=== PATIENT | male | born 1960 | race Caucasian/White ===

== ENCOUNTER 2018-06-08 12:47 | Emergency (ER) | payer BC ==
[2018-06-08] MEDS ORDERED: Aspirin 81 MG Tab.Chew PO ONE (12:57)
[2018-06-08] MEDS ORDERED: Nitroglycerin 0.4 MG Tab.SL SL ONE (12:58)
[2018-06-08] MEDS ORDERED: Nitroglycerin Lingual Spray 4.9 GM Canister TRLING STA (13:04)
[2018-06-08 13:36] LABS: CHLORIDE,CL 109 mEq/L (98-106); SODIUM,NA 138 mEq/L (136-145)
[2018-06-08 14:01] VITALS: BP 140/78
--- NOTE | 2018-06-08 14:22 | EDM.PDOC ---
ED HPI GENERAL MEDICAL PROBLEM - General Chief Complaint: Chest Pain Stated Complaint: CHEST PAIN Time Seen by Provider: 06/08/18 13:45 - History of Present Illness INITIAL COMMENTS - FREE TEXT/NARRATIVE: Thompson is a 57 year old male who presents to the ED with c/o chest pain radiating to his back. 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 He reports that around 1100 this morning he had sudden onset midsternal chest pain rated a 10/10. He reports it felt like a bomb went off in his chest. He reports he did continue to work and load branches for about an hour or so. He then returned home for lunch and told his how he was feeling and she recommended he come to ED. He reports that his pain is now a 3/10 and radiates more to his back. He reports the pain worsens with movement. He denies any shortness of breath, dizziness, N/V/D, abdominal pain, headache, cough, recent illness. He has not taken anything for the pain. Onset: Today, Sudden Onset Date: 06/08/18 Onset Time: 11:00 Duration: Improving Location: Reports: Chest, Back Quality: Reports: Ache, Pressure Severity: Mild Improves with: Reports: None Worsens with: Reports: Movement Context: Reports: Activity Associated Symptoms: Reports: Chest Pain. Denies: Confusion, Cough, cough w sputum, Diaphoresis, Fever/Chills, Headaches, Loss of Appetite, Malaise, Nausea/ Vomiting, Rash, Seizure, Shortness of Breath, Syncope, Weakness Mid-Sternal Chest Pain Score (Numeric/FACES): 3 - Related Data Allergies Allergy/AdvReac Type Severity Reaction Status Date / Time No Known Allergies Allergy Verified 01/04/15 10:21 Home Meds: Home Meds Excedrin 2 tab PO DAILY PRN 06/08/18 [History] Past Medical History - Past Surgical History GI Surgical History: Reports: Colonoscopy Social & Family History - Tobacco Use Smoking Status *Q: Never Smoker - Recreational Drug Use Recreational Drug Use: No ED ROS GENERAL - Review of Systems Review Of Systems: ROS reveals no pertinent complaints other than HPI. ED EXAM, GENERAL - Physical Exam Exam: See Below Exam Limited By: No Limitations General Appearance: Alert, WD/WN, No Apparent Distress Eye Exam: Bilateral Eye: EOMI, Normal Fundi, Normal Inspection, PERRL Head: Atraumatic, Normocephalic Neck: Normal Inspection, Supple, Non-Tender, Full Range of Motion Respiratory/Chest: No Respiratory Distress, Lungs Clear, Normal Breath Sounds, No Accessory Muscle Use, Chest Non-Tender Cardiovascular: Normal Peripheral Pulses, Regular Rate, Rhythm, No Edema, No Gallop, No JVD, No Murmur, No Rub GI/Abdominal: Normal Bowel Sounds, Soft, Non-Tender, No Organomegaly, No Distention, No Abnormal Bruit, No Mass Back Exam: Normal Inspection, Full Range of Motion. No: CVA Tenderness (L), CVA Tenderness (R) Extremities: Normal Inspection, Normal Range of Motion, Non-Tender, Normal Capillary Refill, No Pedal Edema Neurological: Alert, Oriented, CN II-XII Intact, Normal Cognition, Normal Gait, Normal Reflexes, No Motor/Sensory Deficits Psychiatric: Normal Affect, Normal Mood Skin Exam: Warm, Dry, Intact, Normal Color, No Rash Course - Vital Signs Last Recorded V/S: Last Vital Signs Temp 98.9 F 06/08/18 12:48 Pulse 66 06/08/18 12:48 Resp 20 06/08/18 12:48 BP 140/78 06/08/18 14:00 Pulse Ox 96 06/08/18 12:48 - Orders/Labs/Meds Orders: Active Orders 24 hr Category Date Time Status Chest 2V [CR] Stat Exams 06/08/18 12:53 Taken Labs: Laboratory Tests 06/08/18 06/08/18 06/08/18 Range/Units 13:10 13:10 13:10 WBC 4.2 L (5.0-10.0) 10^3/uL RBC 4.09 L (4.50-6.00) 10^6/uL Hgb 13.8 L (14.0-18.0) g/dL Hct 38.9 L (40.0-54.0) % MCV 95.1 H (82.0-94.0) fL MCH 33.7 H (27.0-32.0) pg MCHC 35.5 (33.0-38.0) g/dL RDW Coeff of Dayanara 12.2 (11.0-15.0) % Plt Count 158 (150-400) 10^3/uL Neut % (Auto) 58.5 (35-85) % Lymph % (Auto) 22.9 (10-55) % [place] % (Auto) 14.9 (0-16) % Eos % (Auto) 3.5 (0-5) % Baso % (Auto) 0.2 (0-3) % Neut # (Auto) 2.48 (1.80-7.00) 10^3/uL Lymph # (Auto) 0.97 L (1.00-4.80) 10^3/uL [place] # (Auto) 0.63 (0.00-0.80) 10^3/uL Eos # (Auto) 0.15 (0.00-0.45) 10^3/uL Baso # (Auto) 0.01 10^3/uL PT 9.8 (9.7-12.3) SEC INR 0.94 (0.92-1.18) APTT 25.3 (23.2-32.3) SEC D-Dimer, Quantitative (0.00-0.50) Sodium 138 (136-145) mEq/L Potassium 4.2 (3.5-5.0) mEq/L Chloride 109 H (98-106) mEq/L Carbon Dioxide 21 (21-32) mmol/L BUN 19 H (7-18) mg/dL Creatinine 1.0 (0.7-1.3) mg/dL Est Cr Clr Drug Dosing 93.62 mL/min Estimated GFR (MDRD) > 60 (>=60) mL/min Glucose 104 H (75-99) mg/dL Calcium 8.6 (8.4-10.1) mg/dL Lactate Dehydrogenase 167 (100-190) U/L Creatine Kinase 138 (35-232) U/L Troponin I < 0.017 (0.00-0.06) ng/mL 06/08/18 Range/Units 13:52 WBC (5.0-10.0) 10^3/uL RBC (4.50-6.00) 10^6/uL Hgb (14.0-18.0) g/dL Hct (40.0-54.0) % MCV (82.0-94.0) fL MCH (27.0-32.0) pg MCHC (33.0-38.0) g/dL RDW Coeff of Dayanara (11.0-15.0) % Plt Count (150-400) 10^3/uL Neut % (Auto) (35-85) % Lymph % (Auto) (10-55) % [place] % (Auto) (0-16) % Eos % (Auto) (0-5) % Baso % (Auto) (0-3) % Neut # (Auto) (1.80-7.00) 10^3/uL Lymph # (Auto) (1.00-4.80) 10^3/uL [place] # (Auto) (0.00-0.80) 10^3/uL Eos # (Auto) (0.00-0.45) 10^3/uL Baso # (Auto) 10^3/uL PT (9.7-12.3) SEC INR (0.92-1.18) APTT (23.2-32.3) SEC D-Dimer, Quantitative 0.31 (0.00-0.50) Sodium (136-145) mEq/L Potassium (3.5-5.0) mEq/L Chloride (98-106) mEq/L Carbon Dioxide (21-32) mmol/L BUN (7-18) mg/dL Creatinine (0.7-1.3) mg/dL Est Cr Clr Drug Dosing mL/min Estimated GFR (MDRD) (>=60) mL/min Glucose (75-99) mg/dL Calcium (8.4-10.1) mg/dL Lactate Dehydrogenase (100-190) U/L Creatine Kinase (35-232) U/L Troponin I (0.00-0.06) ng/mL Meds: Medications Discontinued Medications Generic Name Dose Route Start Last Admin Trade Name Freq PRN Reason Stop Dose Admin Aspirin 324 mg 06/08/18 12:57 06/08/18 13:00 Aspirin PO 06/08/18 12:58 324 mg ONETIME ONE Administration Nitroglycerin 0.4 mg 06/08/18 12:58 06/08/18 13:08 Nitrostat SL 06/08/18 12:59 Not Given ONETIME ONE Nitroglycerin 0.4 gm 06/08/18 13:04 06/08/18 13:04 Nitrolingual TRLING 06/08/18 13:05 0.4 mg NOW STA Administration - Re-Assessments/Exams Free Text/Narrative Re-Assessment/Exam: Discussed lab results, EKG, and CXR with patient and . Discussed that pain is not of cardiac origin given normal cardiac enzymes and EKG. CXR does reveal a left lateral 6th rib fracture of undetermined age but is otherwise negative. Patient does report he did have previous injury to that area about 20 years ago. That is the area of pain presently as well. Departure - Departure Time of Disposition: 14:17 Disposition: Home, Self-Care 01 Condition: Good Clinical Impression: Atypical chest pain Left rib fracture Qualifiers: Rib fracture type: single rib Fracture type: closed Fracture healing: with routine healing Referrals: Tisha Lema PA-C [Primary Care Provider] - Forms: ED Department Discharge Additional Instructions: Cardiac workup negative Ibuprofen or Aleve as needed for pain May alternate with Tylenol Ice or heat to affected area as needed for comfort Recommend avoiding repetitive movements of upper extremities until pain improves (ie. chainsawing) Follow up with Tisha Lema PA-C for review of blood counts and recheck - My Orders Last 24 Hours: My Active Orders 06/08/18 12:53 Chest 2V [CR] Stat - Assessment/Plan Last 24 Hours: My Active Orders 06/08/18 12:53 Chest 2V [CR] Stat
== END 2018-06-08 14:30 | disposition home or self-care (01) ==
LOC: CC.ED 12:47
DX: R07.89 Other chest pain (principal)
CPT/HCPCS: 36415; 71046; 80048; 82550; 83615; 84484; 85025; 85379; 85610; 85730; 93005; 99285; A9270-GY

== ENCOUNTER → 2020-12-06 | Day surgery (SDC) | payer BC ==
[~2020-12-06] MED LIST: Glycopyrrolate 0.2 MG/ML SDV ONE; Ketamine 200 MG/20 ML MDV ONE; Propofol 200 MG/20 ML SDV ONE; fentaNYL 100 MCG/2 ML SDV ONE
[2020-12-06] MEDS: Lactated Ringers 1,000 ML IV SCH (07:58)
[2020-12-06 09:35] VITALS: BP 135/80; PULSE 68
--- NOTE | 2020-12-06 11:25 | OR ---
DATE OF OPERATION: 12/06/2020 PREOPERATIVE DIAGNOSIS: FAMILY HISTORY OF COLON CARCINOMA. POSTOPERATIVE DIAGNOSIS: FAMILY HISTORY OF COLON CARCINOMA. SURGEON: Joni Hunter MD PROCEDURE: DIAGNOSTIC COLONOSCOPY. ANESTHESIA: MAC. COMPLICATIONS: None. SPECIMEN: None. FINDINGS: 1. Full-length colonoscopy. 2. Mild sigmoid diverticulosis. RECOMMENDATIONS: Followup colonoscopy every 5 years. INDICATIONS: The patient is due for a routine 5-year scope as he has a family history of colon cancer in his father. DESCRIPTION OF PROCEDURE: The patient was prepped and draped and placed in the left lateral decubitus position. A lubricated Olympus colonoscope was inserted and easily advanced to the cecum. Direct visualization of the ileocecal valve and the appendiceal orifice was accomplished. The bowel prep was adequate. Upon withdrawal of the scope throughout the entire length of the colon, I could find no polyps, masses, ulceration, or bleeding sites and no vascular abnormalities or signs of colitis. Scattered diverticula in the sigmoid area, mild in severity. The rectal vault appeared benign. Retroflexion showed no perianal lesions other than some mild hemorrhoid disease. Air was suctioned and the scope removed without complication. SCHUYLER/TEVIN /[id number]
== END ==
LOC: CC.SDS 07:43
PROVIDERS: ATTEND Family Medicine
DX: Z12.11 Encounter for screening for malignant neoplasm of colon (principal); K57.30 Diverticulosis of large intestine without perforation or abscess without bleeding; K64.9 Unspecified hemorrhoids; G89.29 Other chronic pain; M25.562 Pain in left knee; E66.9 Obesity, unspecified; Z01.812 Encounter for preprocedural laboratory examination; Z20.822 Contact with and (suspected) exposure to COVID-19; Z68.35 Body mass index [BMI] 35.0-35.9, adult; Z80.0 Family history of malignant neoplasm of digestive organs; Z79.899 Other long term (current) drug therapy; Z87.891 Personal history of nicotine dependence
CPT/HCPCS: 00812; J2704; J3010; J3490; J7120